=== PATIENT | male | born 1960 | race Caucasian/White ===

== ENCOUNTER 2019-08-15 11:35 | Emergency (ER) | payer BC, MEDICARE ==
[2019-08-15] MEDS ORDERED: Sodium Chloride 0.9% 10 ML Syringe FLUSH PRN (11:53)
[2019-08-15] MEDS ORDERED: Lidocaine 1% with EPINEPHrine 1:100,000 50 ML MDV SUBCUT STA (12:26)
--- NOTE | 2019-08-15 12:32 | EDM.PDOC ---
ED HPI GENERAL MEDICAL PROBLEM - General Chief Complaint: Upper Extremity Injury/Pain Stated Complaint: DIZZINESS AND RT ARM INFLAMATION Time Seen by Provider: 08/15/19 12:27 Source of Information: Reports: Patient, Old Records History Limitations: Reports: Other (limited records) - History of Present Illness INITIAL COMMENTS - FREE TEXT/NARRATIVE: 58 yo male with known AODM and ASCVD presents on referral from the [facility] by Julio Joyce for a red right elbow with several episodes of light- headedness that resulted in syncope or near syncope. Has had some chest pains in the past week which is not new for him. Lives in [place] and has been hospitalized in at least 4 hospitals in recent years, but he has never been here before. Onset: Gradual Onset Date: 08/13/19 Duration: Day(s): (2), Getting Worse Location: Reports: Upper Extremity, Right Quality: Reports: Dull Severity: Moderate Improves with: Reports: None Worsens with: Reports: Other (time, touching area) Context: Reports: Other (See HPI) Associated Symptoms: Reports: Rash (Red R elbow area.), Other (light-headed with standing) Treatments TECHNICAL [employer]: Reports: Other (see below) (none) Right Elbow Pain Score (Numeric/FACES): 20 - Related Data Allergies Allergy/AdvReac Type Severity Reaction Status Date / Time tetanus and diphtheria Allergy Severe Anaphylactic Verified 08/15/19 13:23 toxoids Shock tuberculin,PPD,multi-puncture Allergy Rash Verified 08/15/19 12:11 warfarin [From Coumadin] Allergy Rash Verified 08/15/19 12:11 Home Meds: Home Meds Albuterol Sulfate [Proair Hfa] 8.5 gm IH Q6HR 08/15/19 [History] Aspirin [Low Dose Aspirin EC] 81 mg PO DAILY 08/15/19 [History] Furosemide [Lasix] 20 mg PO DAILY 08/15/19 [History] Insulin Aspart [NovoLOG] 10 units SUBCUT TIDMEALS 08/15/19 [History] Insulin Glarg,Human.Rec.Analog [Lantus Solostar] 25 units SUBCUT Q12HR 08/15/19 [History] Isosorbide Mononitrate [Imdur] 30 mg PO DAILY 08/15/19 [History] Isosorbide Mononitrate [Isosorbide Mononitrate ER] 60 mg PO DAILY 08/15/19 [ History] Liraglutide [Victoza 3-Link] 1.8 mg SUBCUT DAILY 08/15/19 [History] Losartan [Cozaar] 25 mg PO DAILY 08/15/19 [History] Metoprolol Tartrate [Lopressor] 25 mg PO Q12HR 08/15/19 [History] Nitroglycerin 0.4 mg SL ASDIRECTED PRN 08/15/19 [History] Omeprazole 40 mg PO DAILY 08/15/19 [History] PARoxetine [Paxil] 20 mg PO DAILY 08/15/19 [History] Pregabalin [Lyrica] 75 mg PO BID 08/15/19 [History] Ticagrelor [Brilinta] 90 mg PO BID 08/15/19 [History] amLODIPine [Norvasc] 2.5 mg PO DAILY 08/15/19 [History] atorvaSTATin [Lipitor] 80 mg PO WITHDINNER 08/15/19 [History] lamoTRIgine [Lamotrigine] 150 mg PO TID 08/15/19 [History] metFORMIN [Glucophage XR] 1,000 mg PO BIDMEALS 08/15/19 [History] tiZANidine 2 mg PO Q8H 08/15/19 [History] traZODone 100 mg PO BEDTIME 08/15/19 [History] Review of Systems - Review of Systems Review Of Systems: See Below Constitutional: Reports: No Symptoms Eyes: Reports: No Symptoms Ears: Reports: No Symptoms Nose: Reports: No Symptoms Mouth/Throat: Reports: No Symptoms Respiratory: Reports: No Symptoms Cardiovascular: Reports: Chest Pain (intermittent(chronic)), Lightheadedness GI/Abdominal: Reports: No Symptoms Genitourinary: Reports: No Symptoms Musculoskeletal: Reports: Arm Pain (R elbow pain) Skin: Reports: Erythema (or R elbow area.). Denies: Wound Neurological: Reports: No Symptoms ED EXAM, GENERAL - Physical Exam Exam: See Below Exam Limited By: No Limitations General Appearance: Alert, WD/WN, No Apparent Distress, Obese Eye Exam: Bilateral Eye: Normal Inspection Ears: Normal External Exam, Normal Canal, Hearing Grossly Normal, Normal TMs Ear Exam: Bilateral Ear: Auricle Normal, Canal Normal, TM normal Nose: Normal Inspection, No Blood Throat/Mouth: Normal Inspection, Normal Lips, Normal Oropharynx, Normal Voice, No Airway Compromise Head: Atraumatic, Normocephalic Neck: Normal Inspection Respiratory/Chest: No Respiratory Distress, Lungs Clear, Normal Breath Sounds, No Accessory Muscle Use Cardiovascular: Regular Rate, Rhythm, Other (Trace edema of both LE's below the knees.). No: No Edema GI/Abdominal: Normal Bowel Sounds Extremities: Other (R elbow tender and red/increased warmth.) Neurological: Alert, Oriented, CN II-XII Intact, Normal Cognition, No Motor/ Sensory Deficits Psychiatric: Normal Affect, Normal Mood Skin Exam: Warm, Dry, Intact, No Rash, Erythema (R elbow) Course - Vital Signs Text/Narrative:: Aspirated about 1.5 ml fairly clear, yellow fluid from the R olecranon bursa and sent for culture. Last Recorded V/S: Last Vital Signs Temp 38.1 C 08/15/19 12:03 Pulse 86 08/15/19 12:03 Resp BP 151/83 H 08/15/19 12:03 Pulse Ox 95 08/15/19 12:03 Orthostatic Blood Pressure [ 143/72 Standing] Orthostatic Blood Pressure [ 136/74 Sitting] Orthostatic Blood Pressure [ 135/73 Supine] - Orders/Labs/Meds Orders: Active Orders 24 hr Category Date Time Status Orthostatic Vital Signs [RC] ASDIRECTED Care 08/15/19 11:53 Active CULTURE BLOOD [BC] Stat Lab 08/15/19 12:34 Received CULTURE BLOOD [BC] Stat Lab 08/15/19 12:59 Received CULTURE BODY FLUID + SMEAR [RM] Stat Lab 08/15/19 12:51 Results Sodium Chloride 0.9% [Saline Flush] Med 08/15/19 11:53 Active 10 ml FLUSH ASDIRECTED PRN Saline Lock Insert [OM.PC] Routine Oth 08/15/19 11:53 Ordered Medication Orders Sodium Chloride (Saline Flush) 10 ml FLUSH ASDIRECTED PRN PRN Reason: Keep Vein Open Last Admin: 08/15/19 12:56 Dose: 10 ml Labs: Laboratory Tests 08/15/19 08/15/19 08/15/19 Range/Units 12:34 12:34 12:34 WBC 12.5 H (4.5-11.0) K/uL RBC 4.35 (4.30-5.90) M/uL Hgb 11.9 L (12.0-15.0) g/dL Hct 35.7 L (40.0-54.0) % MCV 82 (80-98) fL MCH 27 (27-31) pg MCHC 33 (32-36) % Plt Count 212 (150-400) K/uL Sodium 137 L (140-148) mmol/L Potassium 4.4 (3.6-5.2) mmol/L Chloride 100 (100-108) mmol/L Carbon Dioxide 27 (21-32) mmol/L Anion Gap 14.4 H (5.0-14.0) mmol/L BUN 25 H (7-18) mg/dL Creatinine 1.5 H (0.8-1.3) mg/dL Est Cr Clr Drug Dosing 60.66 mL/min Estimated GFR (MDRD) 48 L (>60) Glucose 202 H (74-106) mg/dL Lactic Acid 1.8 (0.4-2.0) mmol/L Calcium 8.6 (8.5-10.1) mg/dL Troponin I (0.000-0.056) ng/mL 08/15/19 Range/Units 12:34 WBC (4.5-11.0) K/uL RBC (4.30-5.90) M/uL Hgb (12.0-15.0) g/dL Hct (40.0-54.0) % MCV (80-98) fL MCH (27-31) pg MCHC (32-36) % Plt Count (150-400) K/uL Sodium (140-148) mmol/L Potassium (3.6-5.2) mmol/L Chloride (100-108) mmol/L Carbon Dioxide (21-32) mmol/L Anion Gap (5.0-14.0) mmol/L BUN (7-18) mg/dL Creatinine (0.8-1.3) mg/dL Est Cr Clr Drug Dosing mL/min Estimated GFR (MDRD) (>60) Glucose (74-106) mg/dL Lactic Acid (0.4-2.0) mmol/L Calcium (8.5-10.1) mg/dL Troponin I < 0.017 (0.000-0.056) ng/mL Meds: Medications Generic Name Dose Route Start Last Admin Trade Name Miguelito PRN Reason Stop Dose Admin Sodium Chloride 10 ml 08/15/19 11:53 08/15/19 12:56 Saline Flush FLUSH 10 ml ASDIRECTED PRN Administration Keep Vein Open Discontinued Medications Generic Name Dose Route Start Last Admin Trade Name Miguelito PRN Reason Stop Dose Admin Doxycycline Hyclate 200 mg 08/15/19 13:09 08/15/19 13:29 Vibramycin PO 08/15/19 13:10 200 mg ONETIME ONE Administration Clindamycin Phosphate 900 mg/ 106 mls @ 200 mls/hr 08/15/19 12:53 08/15/19 13 :13 Sodium Chloride IV 08/15/19 13:24 200 mls/hr ONETIME ONE Administration Sodium Chloride 1,000 mls @ 1,000 mls/hr 08/15/19 13:07 08/15/19 13:15 Normal Saline IV 08/15/19 14:06 1,000 mls/hr .BOLUS ONE Administration Lidocaine/Epinephrine 2 ml 08/15/19 12:26 08/15/19 12:55 Xylocaine 1% With Epinephrine 1:100,000 SUBCUT 08/15/19 12:27 2 ml NOW STA Administration Oxycodone/Acetaminophen 1 tab 08/15/19 13:22 08/15/19 13:29 Percocet 325-5 Mg PO 08/15/19 13:23 1 tab ONETIME STA Administration Oxycodone/Acetaminophen 1 tab 08/15/19 14:22 08/15/19 14:28 Percocet 325-5 Mg PO 08/15/19 14:23 1 tab ONETIME STA Administration - Re-Assessments/Exams Free Text/Narrative Re-Assessment/Exam: 08/15/19 15:01 Feeling much better after treatment. Departure - Departure Time of Disposition: 15:10 Disposition: Home, Self-Care 01 Condition: Fair Clinical Impression: Cellulitis of right elbow - Discharge Information *PRESCRIPTION DRUG MONITORING PROGRAM REVIEWED*: No *COPY OF PRESCRIPTION DRUG MONITORING REPORT IN PATIENT COLLINS: No Instructions: Cellulitis, Adult Referrals: PCP,None [Primary Care Provider] - Forms: ED Department Discharge Additional Instructions: Take doxycycline every 12 hrs and clindamycin every 8 hrs each until gone. Take ibuprofen 400 mg every 6 hrs with food for pain relief, add [place] as directed for added relief. Apply moist heat to area several times per day. Recheck in the clinic by tomorrow afternoon. Sepsis Event Note - Evaluation Sepsis Screening Result: No Definite Risk - Focused Exam Vital Signs: Vital Signs Temp Pulse BP Pulse Ox 08/15/19 12:03 38.1 C 86 151/83 H 95 Date Exam was Performed: 08/15/19 Time Exam was Performed: 15:01 - My Orders Last 24 Hours: My Active Orders 08/15/19 11:53 Orthostatic Vital Signs [RC] ASDIRECTED Sodium Chloride 0.9% [Saline Flush] 10 ml FLUSH ASDIRECTED PRN Saline Lock Insert [OM.PC] Routine 08/15/19 12:34 CULTURE BLOOD [BC] Stat 08/15/19 12:51 CULTURE BODY FLUID + SMEAR [RM] Stat 08/15/19 12:59 CULTURE BLOOD [BC] Stat - Assessment/Plan Last 24 Hours: My Active Orders 08/15/19 11:53 Orthostatic Vital Signs [RC] ASDIRECTED Sodium Chloride 0.9% [Saline Flush] 10 ml FLUSH ASDIRECTED PRN Saline Lock Insert [OM.PC] Routine 08/15/19 12:34 CULTURE BLOOD [BC] Stat 08/15/19 12:51 CULTURE BODY FLUID + SMEAR [RM] Stat 08/15/19 12:59 CULTURE BLOOD [BC] Stat
[2019-08-15] MEDS ORDERED: Clindamycin Phosphate 900 MG in Sodium Chloride 0.9% 100 ML IV ONE (12:53)
[2019-08-15] MEDS ORDERED: Sodium Chloride 0.9% 1,000 ML IV ONE (13:07)
[2019-08-15] MEDS ORDERED: Doxycycline 100 MG Cap PO ONE (13:09)
[2019-08-15] MEDS ORDERED: Acetaminophen/oxyCODONE 325-5 MG Tab PO STA ×2 (13:22→14:22)
== END 2019-08-15 15:18 | disposition home or self-care (01) ==
LOC: JP.ED 11:35
DX: L03.113 Cellulitis of right upper limb (principal); Z88.7 Allergy status to serum and vaccine; Z79.82 Long term (current) use of aspirin; Z88.8 Allergy status to other drugs, medicaments and biological substances
CPT/HCPCS: 20600; 36415; 80048; 83605; 84484; 85027; 87040; 87070; 87205; 96365; 99284; A9270; J3490; J7030; J7050

== ENCOUNTER 2021-09-28 19:58 | Emergency (ER) | payer BC, MEDICARE ==
[2021-09-28] MEDS ORDERED: Sodium Chloride 0.9% 10 ML Syringe FLUSH PRN (21:06)
== END 2021-09-28 22:49 | disposition home or self-care (01) ==
LOC: JP.ED 19:58
DX: E11.65 Type 2 diabetes mellitus with hyperglycemia (principal); E11.22 Type 2 diabetes mellitus with diabetic chronic kidney disease; I13.0 Hypertensive heart and chronic kidney disease with heart failure and stage 1 through stage 4 chronic kidney disease, or unspecified chronic kidney disease; N18.9 Chronic kidney disease, unspecified; I50.9 Heart failure, unspecified; E11.40 Type 2 diabetes mellitus with diabetic neuropathy, unspecified; I25.10 Atherosclerotic heart disease of native coronary artery without angina pectoris; E78.00 Pure hypercholesterolemia, unspecified; F41.9 Anxiety disorder, unspecified; F32.A Depression, unspecified; E66.9 Obesity, unspecified; Z79.4 Long term (current) use of insulin; Z79.899 Other long term (current) drug therapy; Z79.82 Long term (current) use of aspirin
CPT/HCPCS: 36415; 80048; 82009; 82803; 85025; 93005; 93010; 99283; 99285-25; J3490